=== PATIENT | female | born 1945 | race Caucasian/White ===

== ENCOUNTER 2016-10-15 14:00 | Observation (INO) ==
--- NOTE | 2016-10-15 14:18 | Emergency Department Note ---
Disposition Clinical Impression: Hypertension, Frail elderly, Hyperlipidemia, Obesity, Gait disturbance, Dizziness, Cerebrovascular disease Disposition: Admitted As Inpatient Referrals: Brittney Crenshaw CNP [Primary Care Provider] - Forms: ED Satisfaction Letter General Adult HPI - General Chief complaint: ED Dizziness Stated complaint: dizzy spells Time Seen by Provider: 10/15/16 14:15 Source: patient Limitations: no limitations - History of Present Illness HPI Narrative: 71-year-old female with history of hypertension and hyperlipidemia reports the emergency department complaining of dizziness. She was being evaluated outpatient and receiving shoulder injections for chronic shoulder pain when her physician felt concern because the patient had complained of some dizziness. Per the patient when I tried to have her walk in the office she was not able to walk straight. The physician had her sent to the ED for further evaluation. The patient describes recurrent dizziness over the last few weeks. She has had chronic bilateral shoulder pain which is unchanged. The patient has never had spinal surgery or any previous stroke or brain surgery. The patient reports occasional numbness or tingling in her upper extremities bilaterally. There is no history of unilateral arm weakness or numbness. No dysarthria. No headache or neck stiffness or rash or fever. No chest pain shortness of breath or abdominal pain no leg swelling or pain coughing up blood or syncope. Patient denies any abdominal pain or acute back pain. No rashes or urinary symptoms. There is no history of fall or injury. The patient does not have dizziness associated with movement or turning her head particularly. Pain Scale: 0 - Related Data Home Medications Medication Instructions Recorded Confirmed Amlodipine 5 g PO DAILY 01/21/16 Atorvastatin 20 mg PO HS 01/21/16 Benazepril HCl 20 mg PO DAILY 01/21/16 Gabapentin [Gralise] 600 mg PO BID 01/21/16 Hydroxyzine Pamoate 01/21/16 01/21/16 Indapamide 2.5 mg PO DAILY 01/21/16 Potassium Chloride [Klor-Con 10 mg PO DAILY 01/21/16 Sprinkle] Zolpidem 10 mg PO HS 01/21/16 Previous Rx's Medication Instructions Recorded OxyCODONE/APAP 5/325 [Percocet 1 each PO Q6HR PRN #10 tablet 02/16/16 5/325] Allergies Allergy/AdvReac Type Severity Reaction Status Date / Time acetaminophen [From Vicodin] Allergy Shakiness Verified 10/15/16 14:03 hydrocodone [From Vicodin] Allergy Shakiness Verified 10/15/16 14:03 Penicillins Allergy See Verified 10/15/16 14:04 Comments All systems ED: reviewed and negative except as stated. Past Medical History - Past Medical History Medical history: Reports: hyperlipidemia, hypertension Psychiatric history: Reports: no psych history - Social History Smoking Status: Current every day smoker Smokeless Tobacco Status: No Alcohol use: Reports: occasionally Drug use: Reports: none Physical Exam - General Limitations: no limitations General appearance: alert - Head Head exam: atraumatic, normocephalic, normal inspection - Eye Eye exam: Present: normal appearance, PERRL, EOMI. Absent: scleral icterus, conjunctival injection, miosis, mydriasis - ENT ENT exam: normal exam, normal oropharynx, mucous membranes moist, TM's normal bilaterally, normal external ear exam - Neck Neck exam: Present: normal inspection, full ROM, trachea midline. Absent: tenderness - Chest Chest inspection: Present: symmetric chest wall rise. Absent: tenderness - Respiratory Respiratory exam: Present: normal lung sounds bilaterally. Absent: respiratory distress, prolonged expiratory phase - Cardiovascular Cardiovascular exam: Present: regular rate, normal rhythm, normal heart sounds - Abdominal Exam Abdominal exam: Present: soft, Non-Tender, normal bowel sounds. Absent: tenderness, distention, guarding, rebound, rigidity - Extremities Exam Extremities exam: Present: normal inspection, full ROM, normal capillary refill. Absent: tenderness, pedal edema, joint swelling, calf tenderness - Expanded Lower Extremity Exam Lower leg exam: Absent: Homans' sign Neurovascular/Tendon exam: Present: normal capillary refill. Absent: motor deficit, sensory deficit, tendon deficit, extremity cold to touch, pallor - Back Exam Back exam: Present: normal inspection, full ROM. Absent: tenderness, CVA tenderness (R), CVA tenderness (L), vertebral tenderness - Neurological Exam Neurological exam: Present: alert, oriented X3, CN II-XII intact. Absent: motor sensory deficit - Psychiatric Psychiatric exam: Present: normal affect, normal mood - Skin Skin exam: Present: warm, dry, intact, normal color. Absent: rash, cyanosis, diaphoresis, erythema, pallor, mottled Course Vital Signs Temperature 97.3 F L 10/15/16 14:01 Pulse Rate 56 10/15/16 14:01 Respiratory Rate 16 10/15/16 14:01 Blood Pressure 150/67 10/15/16 14:01 O2 Sat by Pulse Oximetry 98 10/15/16 14:01 Temperature 97.3 F L 10/15/16 14:01 Pulse Rate 56 10/15/16 14:01 Respiratory Rate 16 10/15/16 14:01 Blood Pressure 150/67 10/15/16 14:01 O2 Sat by Pulse Oximetry 98 10/15/16 14:01 Oxygen Delivery Oxygen Delivery Room Air Medical Decision Making - MDM Narrative Medical decision making narrative: He patient is elderly, she has a history of hypertension and hyperlipidemia and describes recurrent difficulty walking. Her personal physician was very concerned when the patient could not walk well in the office. 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 The patient also describes some tingling in her fingers which is been bilateral and intermittent as well. Based on her age, vascular risk factors, new onset gait disturbance, and noted cerebrovascular disease on CT scan, I thought it would be appropriate to admit the patient the hospital for further evaluation. Perhaps a TIA workup and/or cervical disc workup would be appropriate via MRI of the brain and neck. I discussed the case with the hospitalist chemical instrumentation officer who has accepted the patient to their care. Aspirin was given. - Lab Data Lab results reviewed: Yes I reviewed the patient's lab results. Result diagrams: 10/15/16 15:40 10/15/16 15:40 Lab Results 10/15/16 10/15/16 10/15/16 Range/Units 15:35 15:40 15:40 WBC 6.9 (4.3-11.1) K/mcL RBC 4.36 (3.82-4.97) M/mcL Hgb 14.1 (11.5-15.4) g/dL Hct 39.9 (35.3-44.9) % MCV 91.5 (83.0-100.0) fL MCH 32.3 (28.0-33.3) pg MCHC 35.3 (31.6-35.5) g/dL RDW 11.8 (11.5-14.5) % Plt Count 161 (140-400) K/mcL MPV 11.3 (9.4-12.4) fL Immature Gran % 0.1 (0-4) % Seg Neutrophils % 76.9 % Lymphocytes % 16.5 % Monocytes % 5.8 % Eosinophils % 0.6 % Basophils % 0.1 % Neutrophils # 5.3 (1.6-8.9) K/mcL Lymphocytes # 1.1 (0.6-4.6) K/mcL Monocytes # 0.4 (0.0-1.3) K/mcL Eosinophils # 0.0 (0.0-0.6) K/mcL Basophils # 0.0 (0.0-0.2) K/mcL Sodium 138 (136-145) mEq/L Potassium 3.5 (3.5-4.5) mEq/L Chloride 99 (98-109) mEq/L Carbon Dioxide 29 (19-29) mEq/L BUN 18 (7-20) mg/dL Creatinine 0.86 (0.57-1.11) mg/dL Est GFR ( Amer) > 60 (> 60) Est GFR (Non-Af Amer) > 60 (> 60) BUN/Creatinine Ratio 21 (6-26) Glucose 115 H (70-99) mg/dL Calculated Osmolality 289 (280-300) Lactic Acid (0.5-2.2) mmol/L Calcium 9.9 (8.6-10.8) mg/dL Total Bilirubin (0.2-1.2) mg/dL Direct Bilirubin (0.0-0.5) mg/dL Indirect Bilirubin (0.0-1.2) mg/dL AST (5-34) Units/L ALT (0-55) Units/L Alkaline Phosphatase (38-126) Units/L Troponin I (0-0.03) ng/mL C-Reactive Protein (Less than 5) mg/L Serum Total Protein (6.0-8.3) g/dL Albumin (3.5-5.0) g/dL Globulin (2.4-3.5) g/dL Albumin/Globulin Ratio (1.1-2.2) Urine Color Yellow (Yellow) Urine Clarity Clear (Clear) Urine pH 6.5 (5.0-8.0) pH Units Ur Specific [place] 1.015 (1.010-1.025) Urine Protein Negative (Neg-Trace) mg/dL Urine Glucose (UA) Normal (Normal) mg/dL Urine Ketones Negative (Negative) mg/dL Urine Blood Negative (Negative) Urine Nitrite Negative (Negative) Urine Bilirubin Moderate H (Negative) Urine Urobilinogen Normal (Normal) mg/dL Ur Leukocyte Esterase Negative (Negative) Ur Culture Indicated? NO (NO) 10/15/16 10/15/16 10/15/16 Range/Units 15:40 15:40 15:40 WBC (4.3-11.1) K/mcL RBC (3.82-4.97) M/mcL Hgb (11.5-15.4) g/dL Hct (35.3-44.9) % MCV (83.0-100.0) fL MCH (28.0-33.3) pg MCHC (31.6-35.5) g/dL RDW (11.5-14.5) % Plt Count (140-400) K/mcL MPV (9.4-12.4) fL Immature Gran % (0-4) % Seg Neutrophils % % Lymphocytes % % Monocytes % % Eosinophils % % Basophils % % Neutrophils # (1.6-8.9) K/mcL Lymphocytes # (0.6-4.6) K/mcL Monocytes # (0.0-1.3) K/mcL Eosinophils # (0.0-0.6) K/mcL Basophils # (0.0-0.2) K/mcL Sodium (136-145) mEq/L Potassium (3.5-4.5) mEq/L Chloride (98-109) mEq/L Carbon Dioxide (19-29) mEq/L BUN (7-20) mg/dL Creatinine (0.57-1.11) mg/dL Est GFR ( Amer) (> 60) Est GFR (Non-Af Amer) (> 60) BUN/Creatinine Ratio (6-26) Glucose (70-99) mg/dL Calculated Osmolality (280-300) Lactic Acid 1.1 (0.5-2.2) mmol/L Calcium (8.6-10.8) mg/dL Total Bilirubin 0.9 (0.2-1.2) mg/dL Direct Bilirubin 0.3 (0.0-0.5) mg/dL Indirect Bilirubin 0.6 (0.0-1.2) mg/dL AST 27 (5-34) Units/L ALT 20 (0-55) Units/L Alkaline Phosphatase 76 (38-126) Units/L Troponin I 0.01 (0-0.03) ng/mL C-Reactive Protein 0 (Less than 5) mg/L Serum Total Protein 7.3 (6.0-8.3) g/dL Albumin 4.6 (3.5-5.0) g/dL Globulin 2.7 (2.4-3.5) g/dL Albumin/Globulin Ratio 1.7 (1.1-2.2) Urine Color (Yellow) Urine Clarity (Clear) Urine pH (5.0-8.0) pH Units Ur Specific [place] (1.010-1.025) Urine Protein (Neg-Trace) mg/dL Urine Glucose (UA) (Normal) mg/dL Urine Ketones (Negative) mg/dL Urine Blood (Negative) Urine Nitrite (Negative) Urine Bilirubin (Negative) Urine Urobilinogen (Normal) mg/dL Ur Leukocyte Esterase (Negative) Ur Culture Indicated? (NO) - Radiology Data Radiology results reviewed: Yes I reviewed the patient's radiology results.
[2016-10-15 15:45] LABS: Bilirubin,Urine Moderate (Negative); Blood,Urine Negative (Negative); Clarity,Urine Clear (Clear); Color,Urine Yellow (Yellow); Glucose,Urine (UA) Normal (Normal); Ketones,Urine Negative (Negative); Leukocyte Esterase,Urine Negative (Negative); Nitrite,Urine Negative (Negative); PH,Urine 6.5 pH Units (5.0-8.0); Protein,Urine Negative (Neg-Trace); Specific Gravity,Urine 1.015 (1.010-1.025); Urobilinogen,Urine Normal (Normal)
[2016-10-15 15:48] LABS: Basophils % 0.1 %; Eosinophils % 0.6 %; Hematocrit 39.9 % (35.3-44.9); Hemoglobin 14.1 g/dL (11.5-15.4); Immature Granulocytes % 0.1 % (0-4); Lymphocytes # 1.1 K/mcL (0.6-4.6); Lymphocytes % 16.5 %; Mean Corpuscular HGB Conc 35.3 g/dL (31.6-35.5); Mean Corpuscular Hemoglobin 32.3 pg (28.0-33.3); Mean Corpuscular Volume 91.5 fL (83.0-100.0); Mean Platelet Volume 11.3 fL (9.4-12.4); Monocytes # 0.4 K/mcL (0.0-1.3); Monocytes % 5.8 %; Neutrophils # 5.3 K/mcL (1.6-8.9); Platelet Count 161 K/mcL (140-400); Red Blood Count 4.36 M/mcL (3.82-4.97); Red Cell Distribution Width 11.8 % (11.5-14.5); Segmented Neutrophils % 76.9 %
[2016-10-15 16:02] LABS: BUN/Creatinine Ratio 21 (6-26); Blood Urea Nitrogen 18 mg/dL (7-20); Calcium 9.9 mg/dL (8.6-10.8); Carbon Dioxide 29 mEq/L (19-29); Chloride 99 mEq/L (98-109); Glucose 115 mg/dL (70-99); Osmolality,Calculated 289 (280-300); Potassium 3.5 mEq/L (3.5-4.5); Sodium 138 mEq/L (136-145); eGFR For African Americans > 60 (> 60); eGFR For Non-African Americans > 60 (> 60)
[2016-10-15 16:03] LABS: Albumin 4.6 g/dL (3.5-5.0); Albumin/Globulin Ratio 1.7 (1.1-2.2); Bilirubin,Direct 0.3 mg/dL (0.0-0.5); Bilirubin,Indirect 0.6 mg/dL (0.0-1.2); Bilirubin,Total 0.9 mg/dL (0.2-1.2); Globulin 2.7 g/dL (2.4-3.5); Total Protein 7.3 g/dL (6.0-8.3)
[2016-10-15] MEDS ORDERED: *HR* Acetaminophen w/Cod 300-30 mg 1 TAB TABLET PO ONE (16:50)
[2016-10-15] MEDS ORDERED: Aspirin 325 MG TABLET PO ONE (16:50)
[2016-10-15] MEDS ORDERED: Naloxone 0.4 MG/ML INJ IVP PRN (20:46)
--- NOTE | 2016-10-15 21:07 | Internal Med History&Physical ---
<Natalie Isidro - Last Filed: 10/15/16 20:56> Date of Encounter: 10/15/16 Time of Encounter: 20:00 Assessment and Plan (1) Dizziness Current visit: Yes Status: Acute - Dizziness associated with positional change. - Likely secondary to orthostatic hypotension. Also concern of vertebrobasilar insufficiency given associated loss of balance & posterior neck pain with PMH of HTN and hyperlipidemia. - CT head found no intracranial abnormality. - Will check orthostatic vital signs and hold her home BP medications for now. - Will obtain MRI brain and MRA head & neck for further evaluation. - Continue telemetry monitoring. (2) Gait disturbance Current visit: Yes Status: Acute - With some unsteadiness on physical exam. - Concern of vertebrobasilar insufficiency. - Fall precaution. - PT/OT to evaluate and treat. (3) Hypertension Current visit: Yes Status: Chronic - Patient's dizziness can be partially contributed by orthostatic hypotension. - Will check orthostatic vital signs. - Will hold home blood pressure medications for now. - Continue to monitor BP. Qualifiers: Hypertension type: essential hypertension Qualified Code(s): I10 - Essential (primary) hypertension (4) Hyperlipidemia Current visit: Yes Status: Chronic - Continue Lipitor. Qualifiers: Hyperlipidemia type: unspecified Qualified Code(s): E78.5 - Hyperlipidemia , unspecified (5) DVT prophylaxis Current visit: Yes Status: Acute - SQ heparin Internal Medicine - H&P: HPI Chief complaint: Dizziness Admitted From: Home Plans for Post Hospital Care: Home History of present illness: Ms. Powell is a 71 year old female with PMH of HTN, hyperlipidemia, knee osteoarthritis s/p bilateral TKR and chronic bilateral shoulder pain. Patient had bilateral shoulder joint injection at [facility] today but was noted to have ataxia along with complaint of dizziness. Patient was sent from the clinic to [facility] ED for further evaluation. Patient reports having occasional dizziness for past 1-2 weeks. It usually associated with positional change such as standing up from lying or sitting position. Patient describes the dizziness as loss of balance and denies room spinning, lightheadedness or syncope. It's associated with new onset of right hand & forearm numbness and posterior neck pain. Patient denies focal weakness, vision or hearing change. Patient denies chest pain/discomfort, palpitation, dyspnea, fever, nausea, vomiting, diarrhea. Patient reports no known personal history of heart but has known heart murmurs for long time. Patient denies known history of stroke/TIA in the past and no known recent trauma/injury. Past Med Surg Social Fam HX - Past Medical History Medical history: hyperlipidemia, hypertension, other (Osteoarthritis of bilateral knees and shoulders) Psychiatric history: anxiety, depression - Past Surgical History Surgical History: knee replacement - Social History Smoking Status: Current some day smoker Smokeless Tobacco Status: No Alcohol use: occasionally Drug use: none - Family History Father Living Status: Age at : 86 Hx Family Cardiac Disorders: Yes (Heart attack) Mother Living Status: Age at : 92 Internal Medicine - H&P: Meds Amlodipine [Norvasc] 5 mg PO DAILY 01/21/16 [History] Atorvastatin Calcium [Lipitor] 20 mg PO HS 01/21/16 [History] Benazepril HCl [Lotensin] 20 mg PO QAM 01/21/16 [History] Indapamide [Lozol] 2.5 mg PO DAILY 01/21/16 [History] Potassium Chloride [Klor-Con Sprinkle] 10 meq PO DAILY 01/21/16 [History] Zolpidem [Ambien] 10 mg PO HS 01/21/16 [History] Acetaminophen w/Cod 300-30 mg [Tylenol w/Codeine #3] 1 each PO Q6H PRN 10/15/16 [History] Docusate [Colace] 100 mg PO DAILY PRN 10/15/16 [History] Etodolac [Lodine] 400 mg PO QAM 10/15/16 [History] Gabapentin [Neurontin] 600 mg PO HS 10/15/16 [History] Polyethylene Glycol 3350 [Smoothlax] 17 gm PO DAILY PRN 10/15/16 [History] Sertraline [Zoloft] 100 mg PO DAILY 10/15/16 [History] Allergies acetaminophen [From Vicodin] Allergy (Verified 10/15/16 14:03) Shakiness hydrocodone [From Vicodin] Allergy (Verified 10/15/16 14:03) Shakiness Penicillins Allergy (Verified 10/15/16 14:04) See Comments patient unsure of reaction All Systems PM: A 10-system review of systems was performed and is negative for pertinent findings except as documented above in the HPI. - Constitutional Constitutional: weight loss (Intentional weight loss for 5 lb), no anorexia, no fever(s), no falls - EENT Eyes: no change in vision Ears: no decreased hearing Nose, mouth and throat: neck pain (Posterior), no dysphagia, no odynophagia - Cardiovascular Cardiovascular ROS IM: no chest pain, no lightheadedness, no palpitations, no syncope - Respiratory Respiratory: no cough, no dyspnea, no excessive phlegm production - Gastrointestinal Gastrointestinal: no abdominal pain, no diarrhea, no hematochezia, no melena, no nausea, no vomiting - Genitourinary Genitourinary: no difficulty urinating, no dysuria, no hematuria - Musculoskeletal Musculoskeletal ROS IM: arthralgias (Chronic shoulder pain), no myalgias - Integumentary Integumentary IM: no erythema, no pruritus, no rash - Neurological Neurological ROS: as per HPI - Hematologic/Lymphatic Hematologic/Lymphatic: no easy bleeding, no easy bruising - Constitutional Vitals: Temp Pulse Resp BP Pulse Ox 97.3 F L 56 16 169/81 98 10/15/16 14:01 10/15/16 14:01 10/15/16 18:04 10/15/16 18:04 10/15/16 14:01 General appearance: Present: cooperative, A&O X 3, no acute distress, answers questions appropriately - Head Head exam: Present: atraumatic, normocephalic - Eye Eye exam: Present: PERRL, conjuntiva pink, sclera anicteric Pupils: Present: PERRL - Neck Neck exam general surgery: Present: supple, trachea midline. Absent: lymphadenopathy - Respiratory Respiratory exam: Present: CTAB. Absent: accessory muscle use, rales, rhonchi, wheezes - Cardiovascular Cardiovascular exam: Present: RRR, +S1, +S2, systolic murmur. Absent: diastolic murmur, gallop, rubs - GI/Abdominal GI/Abdominal exam: Present: normal bowel sounds, soft, no peritoneal signs. Absent: distended, tenderness - Extremities Exam Extremities exam: Present: warm, radial pulses palpable and symetrical. Absent : calf tenderness, cyanotic, pedal edema - Neurological Exam Neurological exam: Present: abnormal gait (Some unsteadiness), CN II-XII intact , oriented X3, no focal deficits. Absent: pronater drift, facial droop, speech deficit - Skin Skin exam: Present: dry, intact Internal Med - H&P Results - Labs CBC & Chem 7: 10/15/16 15:40 10/15/16 15:40 <Catracho Posada - Last Filed: 10/16/16 06:01> Date of Encounter: 10/15/16 Internal Medicine - H&P: HPI History of present illness: Ms. Powell is a 71 year old female All Systems PM: A 10-system review of systems was performed and is negative for pertinent findings except as documented above in the HPI. - Constitutional Vitals: Temp Pulse Resp BP Pulse Ox 98.4 F 66 16 158/67 95 10/16/16 04:34 10/16/16 04:34 10/16/16 04:34 10/16/16 04:34 10/16/16 04:34 Internal Med - H&P Results - Labs CBC & Chem 7: 10/15/16 15:40 10/15/16 15:40 - Impressions ITS Impressions Brain MRI 10/15/16 20:48 IMPRESSION: Chronic small vessel ischemic changes. No acute brain parenchymal abnormality. D/ / Lulú Bhatia MD / Lulú Bhatia MD Interpreting Provider: Lulú Bhatia MD Head MRA 10/15/16 20:48 IMPRESSION: No significant abnormality of the intracranial circulation. D/ / Lulú Bhatia MD / Lulú Bhatia MD Interpreting Provider: Lulú Bhatia MD Neck MRA 10/15/16 20:48 IMPRESSION: Approximately 50% stenosis of the right internal carotid artery in the region of the bulb using NASCET criteria. Mild stenosis of the origin of the left subclavian from the aortic arch. No other abnormality of the neck vessels. D/ / Lulú Bhatia MD / Lulú Bhatia MD Interpreting Provider: Lulú Bhatia MD - Attending Attestation I personally examined and interviewed this patient and my medical decision- making was reviewed with the Resident Physician-Dr Isidro. I agree with the documented findings, disposition and treatment plan as described except to the extent set forth below. Patient reports that she had sinusitis symptoms in the prior month before the onset of her symptoms, she additionally reports that her symptoms are worse with position so other differentials to consider are BPPV and vestibular neuronitis should MRA and MRI be negative.
[2016-10-15] MEDS ORDERED: Gabapentin 300 MG CAPSULE PO SCH (23:00)
[2016-10-16] MEDS: *HR* Heparin 5,000 UNIT/ML VIAL SQ SCH ×2 (06:01→17:50)
[2016-10-16 06:14] LABS: Hematocrit 38.4 % (35.3-44.9); Hemoglobin 13.6 g/dL (11.5-15.4); Immature Granulocytes % 0.2 % (0-4); Lymphocytes # 0.6 K/mcL (0.6-4.6); Mean Corpuscular HGB Conc 35.4 g/dL (31.6-35.5); Mean Corpuscular Hemoglobin 32.2 pg (28.0-33.3); Mean Platelet Volume 11.5 fL (9.4-12.4); Monocytes # 0.4 K/mcL (0.0-1.3); Monocytes % 4.5 %; Neutrophils # 7.3 K/mcL (1.6-8.9); Platelet Count 160 K/mcL (140-400); Red Blood Count 4.22 M/mcL (3.82-4.97); Red Cell Distribution Width 11.6 % (11.5-14.5); Segmented Neutrophils % 88.3 %
[2016-10-16 06:43] LABS: BUN/Creatinine Ratio 21 (6-26); Blood Urea Nitrogen 18 mg/dL (7-20); Calcium 9.9 mg/dL (8.6-10.8); Carbon Dioxide 26 mEq/L (19-29); Chloride 101 mEq/L (98-109); Glucose 163 mg/dL (70-99); Osmolality,Calculated 293 (280-300); Potassium 3.9 mEq/L (3.5-4.5); Sodium 139 mEq/L (136-145); eGFR For African Americans > 60 (> 60); eGFR For Non-African Americans > 60 (> 60)
[2016-10-16] MEDS ORDERED: *HR* Acetaminophen w/Cod 300-30 mg 1 TAB TABLET PO PRN (14:20)
[2016-10-16] MEDS ORDERED: amLODIPine 5 MG TABLET PO SCH (15:00)
[2016-10-16 15:32] VITALS: BP 159/73
--- NOTE | 2016-10-16 16:48 | Discharge Summary ---
Date of Encounter: 10/16/16 Time of Encounter: 15:00 - Discharge Diagnosis (1) Dizziness Priority: Primary Status: Acute (2) Gait disturbance Priority: Secondary Status: Chronic (3) Hyperlipidemia Priority: Secondary Status: Chronic Qualifiers: Hyperlipidemia type: unspecified Qualified Code(s): E78.5 - Hyperlipidemia , unspecified (4) Hypertension Priority: Secondary Status: Chronic Qualifiers: Hypertension type: essential hypertension Qualified Code(s): I10 - Essential (primary) hypertension (5) Cervical stenosis of spine Priority: Secondary Status: Chronic (6) Carotid artery stenosis Priority: Secondary Status: Chronic Qualifiers: Laterality: right Qualified Code(s): I65.21 - Occlusion and stenosis of right carotid artery (7) Cerebrovascular disease Priority: Primary Status: Chronic (8) Obesity Priority: Secondary Status: Chronic Qualifiers: Obesity type: due to excess calories Obesity severity: non-morbid Qualified Code(s): E66.09 - Other obesity due to excess calories - Discharge Medications Home Medications: Amlodipine [Norvasc] 5 mg PO DAILY 01/21/16 [History] Atorvastatin Calcium [Lipitor] 20 mg PO HS 01/21/16 [History] Zolpidem [Ambien] 10 mg PO HS 01/21/16 [History] Acetaminophen w/Cod 300-30 mg [Tylenol w/Codeine #3] 1 each PO Q6H PRN 10/15/16 [History] Docusate [Colace] 100 mg PO DAILY PRN 10/15/16 [History] Etodolac [Lodine] 400 mg PO QAM 10/15/16 [History] Gabapentin [Neurontin] 600 mg PO HS 10/15/16 [History] Polyethylene Glycol 3350 [Smoothlax] 17 gm PO DAILY PRN 10/15/16 [History] Sertraline [Zoloft] 100 mg PO DAILY 10/15/16 [History] Allergies/Adverse Reactions: Allergies acetaminophen [From Vicodin] Allergy (Verified 10/15/16 14:03) Shakiness hydrocodone [From Vicodin] Allergy (Verified 10/15/16 14:03) Shakiness Penicillins Allergy (Verified 10/15/16 14:04) See Comments patient unsure of reaction Procedures/tests Complete & Pending: Procedures Performed prior 72 hours Category Date Time Status MR angio head wo con [MR] Stat MRI 10/15/16 20:48 Draft MR angio neck wo/w con [MR] Stat MRI 10/15/16 20:48 Draft MR head/brain wo con [MR] Stat MRI 10/15/16 20:48 Draft Date of admission: 10/15/16 17:06 Primary care physician: Brittney Crenshaw CNP Consults: 10/15/16 21:31 Consult to Occupational Therapy [CONS] Routine Comment: Evaluate, develop and implement POC Consult to Physical Therapy [CONS] Routine Comment: Evaluate, develop and implement POC - Patient Status Disposition: Home, Self-Care Condition: Good Functional capacity at discharge: independent ambulation Overall status at discharge: patient is progressing back to baseline - Discharge Instructions Follow Up With: Brittney Crenshaw CNP [Primary Care Provider] - Additional Instructions: YOUR DIZZINESS WAS LIKELY SECONDARY TO LOW BLOOD PRESSURE, STOPPED TAKING YOUR HOME DOSE OF LOTENSIN. CHECK YOUR BLOOD PRESSURE TWICE DAILY (SAME TIME EVERY DAY IN THE MORNING AND THE EVENING). CALL YOUR DOCTOR IF BP>150/90. KEEP YOURSELF HYDRATED. YOU HAD AN MRI OF YOUR BRAIN THAT SHOWED CHRONIC CHANGES FROM ELEVATED BLOOD PRESSURE IN THE PAST. YOU ALSO HAD AN MRA OF THE HEAD THAT WAS UNREMARKABLE. YOU HAD AN MRA OF YOUR NECK THAT SHOWED CHOLESTEROL BUILDING UP INSIDE YOUR ARTERY ON THE RIGHT SIDE. PLEASE FOLLOW A STRICT LOW FAT AND LOW SALT DIET. FOLLOW UP WITH YOUR DOCTOR IN 1 WEEK AND BRING NUMBERS OF BLOOD PRESSURE. - Diet and Activity Activity: resume usual activities as tolerated Diet: low fat, low cholesterol, low salt diet Interval History: Patient's only complaint is an episode of right arm numbness and tingling as that it is chronic due to cervical stenosis. No nausea. No vomiting. No chest pain. No shortness of breath. She is eager to go home Hospital course: Ms. Powell is a 71 year old female with past medical history of hypertension, posterior ascites, tobacco use, and cervical stenoses who presented with a chief complaint of dizziness. MRI of the brain showed chronic vessel ischemic changes, no acute intracranial process. MRA of the head was unremarkable. Neck MRA showed 50% stenosis of right internal carotid artery. Her dizziness was likely secondary to orthostatic hypotension due to blood pressure medications. Her blood pressure medications when tested on that she was instructed to check her blood pressure at home. Physical therapy recommended outpatient therapy. Plan: Patient with explaining to tell her diagnosis, imaging results, and treatment options. She was recommended to follow a strict low salt, low fat diet and to take all her medications. She will check her blood pressure at home. She verbalized understanding and agreement with the plan. All questions answered. She will follow-up with her primary care physician in one week. - Time Spent with Patient Total time spent providing and/or coordinating discharge services: - Constitutional Vitals: Temp Pulse Resp BP Pulse Ox 98.2 F 68 14 159/73 95 10/16/16 15:30 10/16/16 15:30 10/16/16 15:30 10/16/16 15:30 10/16/16 15:30 General appearance: Present: cooperative, A&O X 3, no acute distress, answers questions appropriately - Eye Eye exam: Present: PERRL, sclera anicteric - Neck Neck exam general surgery: Present: supple, trachea midline. Absent: lymphadenopathy - Respiratory Respiratory exam: Present: CTAB - Cardiovascular Cardiovascular exam: Present: RRR - GI/Abdominal GI/Abdominal exam: Present: normal bowel sounds, soft. Absent: distended, tenderness - Extremities Exam Extremities exam: Absent: pedal edema - Neurological Exam Neurological exam: Present: alert, oriented X3, no focal deficits, strengths equal and symetr throughout. Absent: facial droop, speech deficit - Skin Skin exam: Absent: rash
--- NOTE | 2016-10-16 20:00 | Electrocardiograph Report ---
[address] [address] Test Date: 2016-10-15 Pat Name: Romana Powell Department: 102 Room: 3A43 Gender: F Regroover: : 1945 Requested By: Jalil Ramos Order Number: [id number] Reading MD: Gretchen Spann Measurements Intervals [place] Rate: 58 P: 47 MI: 159 QRS: 14 QRSD: 97 T: 30 QT: 440 QTc: 436 Interpretive Statements SINUS BRADYCARDIA Electronically Signed On 10-16-2016 19:59:09 EDT by Gretchen Spann
== END 2016-10-16 17:55 | disposition home or self-care (01) ==
LOC: EMEROO 14:00 → 3ANU 14:00
PROVIDERS: ADMIT Internal Medicine; ATTEND Internal Medicine

== ENCOUNTER 2017-10-01 06:09 | Inpatient (IN) ==
[~2017-10-01 06:09] MED LIST: *HR* Enoxaparin 30 MG/0.3 ML SYRINGE SQ SCH
[2017-10-01] MEDS ORDERED: Clindamycin 900 MG/50 ML 900 MG/50 ML IV.SOLN IVPB ONE (06:30)
[2017-10-01] MEDS ORDERED: Albuterol 2.5 MG/3 ML NEBULIZER IH ONE (06:47)
[2017-10-01] MEDS: Plasma-Lyte A (PH 7.4) 1,000 ML IVC SCH ×2 (07:11→09:17)
[2017-10-01] MEDS ORDERED: Ondansetron 4 MG/2 ML VIAL ONE (07:17)
[2017-10-01] MEDS ORDERED: *HR* Midazolam HCl 2 MG/2 ML VIAL ONE (07:17)
[2017-10-01] MEDS ORDERED: *HR* FentaNYL (PF) 100 MCG/2 ML VIAL ONE (07:17)
[2017-10-01] MEDS ORDERED: Dexamethasone 4 MG/ML VIAL ONE (07:17)
[2017-10-01] MEDS ORDERED: Lidocaine -MPF 4% 5 ML AMPUL ONE (07:17)
[2017-10-01] MEDS ORDERED: Lidocaine -MPF 2% 2 ML VIAL ONE ×2 (07:17→07:20)
[2017-10-01] MEDS ORDERED: *HR* Propofol 200 MG/20 ML VIAL IVP ONE (07:18)
[2017-10-01] MEDS ORDERED: *HR* Succinylcholine 200 MG/10 ML VIAL IVP ONE (07:21)
[2017-10-01] MEDS ORDERED: ROPIVACAINE HCL/PF 0.5% 30 ML VIAL ONE (07:29)
[2017-10-01] MEDS ORDERED: Lidocaine/EPI 1:100k 2% 20 ML VIAL ONE (07:31)
[2017-10-01] MEDS ORDERED: Bupivacaine/Clonidine Syringe 1 EACH SYRINGE ONE (07:32)
--- NOTE | 2017-10-01 07:40 | History & Physical Report ---
Date of Encounter: 10/01/17 Time of Encounter: 07:40 24 Hour HP Update - Instructions Instructions: If the History and Physical is less than 30 days old and was completed prior to A.M. admission and or procedure and has NOT been updated on calendar day of procedure please complete this update prior to performing procedure. - Update Patient reports changes in Medical Condition: No Changes in examination, assessment, or condition: No Changes in Medication: No Preop tests/diagnostics Reviewed: Yes Surgery Remains Indicated: Yes Consent for Planned Operative Procedure(s) Verified: Yes - Pre-Operative Checklist Preoperative Checklist Indicated: No Prophylactic Antibiotic Ordered: Yes Is VTE Prophylaxis Indicated?: Yes
--- NOTE | 2017-10-01 07:42 | Discharge Summary ---
<Renee Horne - Last Filed: 10/01/17 08:16> Orders not resulted at time of discharge: Pending orders 10/01/17 00:01 XR shoulder complete LT [XR] Routine XR shoulder complete LT [XR] Routine H/H [Hemoglobin and Hematocrit] [HEME] Routine 10/01/17 07:55 US anesthesia pain block [US] Stat Date of Encounter: 10/01/17 - Discharge Diagnosis (1) Arthritis of left glenohumeral joint Priority: Primary Status: Acute (2) Status post total replacement of left shoulder Priority: Primary Status: Acute - Hospital Course Hospital course: Ms. Powell is a 72 year old female - Time Spent with Patient Total time spent providing and/or coordinating discharge services: - Discharge Medications Home Medications: Atorvastatin Calcium [Lipitor] 20 mg PO HS 01/21/16 [History] Zolpidem [Ambien] 10 mg PO HS 01/21/16 [History] amLODIPine [Norvasc] 5 mg PO DAILY 01/21/16 [History] Gabapentin [Neurontin] 600 mg PO HS 10/15/16 [History] Sertraline [Zoloft] 100 mg PO DAILY 10/15/16 [History] Benazepril HCl [Lotensin] 20 mg PO DAILY 10/01/17 [History] Indapamide [Lozol] 2.5 mg PO DAILY 10/01/17 [History] OxyCODONE Immed Rel [Roxicodone 5 MG] 5 mg PO Q6HR PRN 7 Days #28 tablet [Rx] Potassium Chloride [Klor-Con 10] 10 meq PO DAILY 10/01/17 [History] hydrOXYzine pamoate [HydrOXYzine Pamoate] 25 mg PO DAILY 10/01/17 [History] Allergies/Adverse Reactions: 3 Allergy/AdvReac Type Severity Reaction Status Date / Time hydrocodone [From Vicodin] Allergy angry, ams Verified 10/01/17 06:41 Penicillins Allergy unknown-childhood Verified 10/01/17 06:41 allergy Primary care physician: Brittney Crenshaw CNP - Patient Status Disposition: Transfer Inpatient Rehab Fac Condition: Good - Discharge Instructions Follow Up With: Brittney Crenshaw CNP [Primary Care Provider] - <Jermain Ruth - Last Filed: 10/03/17 06:43> Orders not resulted at time of discharge: Pending orders 10/01/17 00:01 XR shoulder complete LT [XR] Routine H/H [Hemoglobin and Hematocrit] [HEME] Routine Date of Encounter: 10/03/17 Time of Encounter: 06:42 - Discharge Diagnosis (1) Left rotator cuff tear arthropathy Priority: Primary Status: Chronic (2) Obesity (BMI 30.0-34.9) Priority: Secondary Status: Chronic (3) Hypertension Priority: Secondary Status: Chronic Qualifiers: Hypertension type: unspecified Qualified Code(s): I10 - Essential (primary ) hypertension (4) Hyperlipidemia Priority: Secondary Status: Chronic Qualifiers: Hyperlipidemia type: unspecified Qualified Code(s): E78.5 - Hyperlipidemia , unspecified (5) Cerebrovascular disease Priority: Secondary Status: Chronic (6) Cervical stenosis of spine Priority: Secondary Status: Chronic (7) Carotid artery stenosis Priority: Secondary Status: Chronic Qualifiers: Laterality: unspecified laterality Qualified Code(s): I65.29 - Occlusion and stenosis of unspecified carotid artery (8) Acute blood loss anemia Priority: Primary Status: Acute (9) Status post total replacement of left shoulder Priority: Primary Status: Acute - Hospital Course Hospital course: Ms. Powell is a 72 year old female Status post left total shoulder replacement The patient had an uneventful postoperative course. They received antibiotics and physical therapy and were discharged in stable condition. There will follow -up in the office in 2 weeks. Discharge Friday - Time Spent with Patient Total time spent providing and/or coordinating discharge services: Primary care physician: Brittney Crenshaw CNP - Patient Status Functional capacity at discharge: independent ambulation Overall status at discharge: patient is progressing back to baseline
--- NOTE | 2017-10-01 07:56 | Anesthesia Evaluation PreOp ---
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 History: Other (numbness involving L second finger) Other Medical History: Denies Any Significant HX Anesthesia History: No Prior Anesthetic Complications Alcohol Use: none Drug use: none Medications and Allergies Atorvastatin Calcium [Lipitor] 20 mg PO HS 01/21/16 [History] Zolpidem [Ambien] 10 mg PO HS 01/21/16 [History] amLODIPine [Norvasc] 5 mg PO DAILY 01/21/16 [History] Gabapentin [Neurontin] 600 mg PO HS 10/15/16 [History] Sertraline [Zoloft] 100 mg PO DAILY 10/15/16 [History] Benazepril HCl [Lotensin] 20 mg PO DAILY 10/01/17 [History] Indapamide [Lozol] 2.5 mg PO DAILY 10/01/17 [History] Potassium Chloride [Klor-Con 10] 10 meq PO DAILY 10/01/17 [History] hydrOXYzine pamoate [HydrOXYzine Pamoate] 25 mg PO DAILY 10/01/17 [History] 3 Allergy/AdvReac Type Severity Reaction Status Date / Time hydrocodone [From Vicodin] Allergy angry, ams Verified 10/01/17 06:41 Penicillins Allergy unknown-childhood Verified 10/01/17 06:41 allergy - Meds/Allergy Pre-op Review Medications Reviewed: Yes Allergies Reviewed: Yes Beta Blockers on Current Med List: No Anesthesia Results - Labs Laboratory Tests 09/18/17 09/18/17 13:08 13:08 WBC 5.3 Hgb 13.4 Hct 38.9 Plt Count 159 Sodium 140 Potassium 3.8 Chloride 102 Carbon Dioxide 28 BUN 19 Creatinine 0.89 Est GFR ( Amer) > 60 Est GFR (Non-Af Amer) > 60 BUN/Creatinine Ratio 21 Glucose 93 Calculated Osmolality 292 Calcium 9.8 - Imaging EKG: report reviewed, image reviewed (SB) Anesthesia Exam Last Vital Signs Temp 99.2 F 10/01/17 06:43 Pulse 67 10/01/17 06:43 Resp 18 10/01/17 06:43 BP 135/67 10/01/17 06:43 Pulse Ox 96 10/01/17 06:43 - HEENT Pupil (Motor): Pupils equal, EOMI Mallampati: III Teeth: Normal Oral Opening: Greater than 3 - WIRE MILL ROVER WIRE MILL ROVER Sensory: Deficit: LUE (numbness involving second digit of L hand) - Cardiac Rhythm: Regular Murmur: None - Pulmonary Breath Sounds: bilateral Clear Respiratory Effort: Symmetrical Anesthesia Assess/Plan ASA Score: 2 Modified Jesika Scale for Level of Consciousness: Cooperative, oriented, and tranquil Anesthetic Plan: General, Regional (Patient aware of risks of nerve block, with her pre-existing Left second finger numbness; she has no clinically detectable weakness and has never officially been diagnosed with nerve damage; she is agreeable to a LUE brachial plexus block even with her likely pre-existing nerve damage resulting in persist numbness to the finger and understands those risks) Monitoring Plan: Standard Monitors Recovery Plan: PACU
[2017-10-01] MEDS ORDERED: *HR* PHENYLEPHRINE 1,000 MCG/10 ML SYRINGE IVP ONE (08:27)
[2017-10-01] MEDS ORDERED: *HR* Promethazine 25 MG/ML VIAL IVP PRN (08:36)
[2017-10-01] MEDS ORDERED: *HR* HYDROmorphone (PF) 1 MG/ML SYRINGE IVP PRN (08:36)
--- NOTE | 2017-10-01 08:40 | Anesthesia Procedures ---
Date of Encounter: 10/01/17 Time of Encounter: 08:00 Procedures: Anesthesia - Nerve Block Procedure Date: 10/01/17 Time: 08:00 Allergies/Adv Reactions: hydrocodone,pcn Pre-op Diagnosis: left shoulder arthritis Surgical Procedure: left shoulder replacement Checklist: Correct Patient Identifier, Correct procedure, History checked Correct side: Left Blood Thinner: No Monitor Applied: EKG, BP, Pulse Oximetry Supplemental Oxygen via Nasal Cannula (L/min): 2 Sedation: Versed (mg): 2 Sedation: Fentanyl (mcg): 100 Indication: Post Op Analgesia Pre-op Neuro Deficits: No Block Type: Supraclavicular (icb/scp) Catheter placed: No Sterile Technique: Yes Ultrasound used: Yes Anatomy identified: Yes Visual spread of Local: Yes Neuro Stimulation: Yes Nerve Stimulator Range: 0.2 - 0.4 mA Blood on Needle Aspiration: No Smooth Injection of Local: Yes Pain with Injection of Local: No Prep: Chlorhexadine Needle: 22 x 50 mm Stimuplex Local: 0.25% Bupivicaine w/Clonidine 20 mcg/cc (icb/scp), Ropivacaine (rop 0.5% 8mg decadron ) Volume (cc): 35 Number of Attempts: 1 Complications: None/effective block Vitals: Vital Signs - Last 8 Hours Temp Pulse Resp BP Pulse Ox 10/01/17 08:01 18 167/74 98 10/01/17 06:43 99.2 F 67 18 135/67 96 10/01/17 06:29 99.2 F 67 18 135/67 96 Intake and Output 09/30/17 10/01/17 10/01/17 23:59 07:59 15:59 Intake Total 50 / 50 Balance 50 / 50 Intake: IV Fluids 50 / 50 Cleocin Premix 900 MG/50 ML 900 50 / 50 mg In 50 ml @ 100 mls/hr IVPB PREOP ONE Rx#:[id number] Other: Weight 77.111 kg Patient Weight 10/01/17 23:59 Weight 77.111 kg Comments: per dr. guzman request
--- NOTE | 2017-10-01 09:17 | Orthopedic Operative Note ---
Date of procedure: 10/01/17 Pre-op diagnosis: Left shoulder arthritis Post-op diagnosis: same Procedure: Procedure: Total Shoulder Replacement left Estimated blood loss: 50 cc Hardware:Arthrex eclipse glenoid: Medium keel eclipse humeral head 47 x 20 35 hollow screw 47 trunnion, 4, 4.75 swivel lock suture anchors. Exam Under anesthesia: Restricted motion all planes Procedural Notes: Grade 4 arthritic changes humeral head glenoid socket, significant osteophyte formation humeral neck, no complications occurred Operative procedure: The patient was brought to the operating room and placed on the operating room table. After general anesthesia was administered the operative shoulder was examined. Findings were noted. The patient was placed in the modified beachchair position. All pressure points were padded appropriately. And the head was stabilized in the neutral position. The operative extremity was prepped and draped in the sterile surgical fashion. The patient received IV antibiotics prior to skin incision. A standard deltopectoral approach was made to the operative shoulder. Incision was made to the skin and subcutaneous tissue,hemo stasis was obtained with Bovie cautery. Using careful blunt dissection the cephalic vein was identified and mobilized medially. The deltopectoral interval was developed and the clavipectoral fascia was incised. The subscap was released off the lesser tuberosity and tagged with #2 FiberWire suture. The humerus was dislocated osteophytes were present were removed and the humeral cut was made along the anatomic neck. Patient noted to have grade 4 arthritic changes humeral head. Anterior and posterior Bankart retractors were placed to expose the glenoid. Glenoid was noted to have grade 4 arthritic changes. The glenoid guide was seated and the centering hole was made. It was reamed with the appropriate reamer. The finishing guide was seated superior and inferior drill holes were placed. Patient punch was seated trial was seated had good fit and fixation. The glenoid component was cemented in place held with digital pressure until cemented hardened. Good fit and fixation. The humerus was redislocated and prepared the humerus was sized to a 47, the guide was seated centering pin was placed measured at 3. Trial trunnion was seated 43 x 16 trial was seated humerus was reduced patient good motion and stability. Humerus was redislocated real trunnion was seated inthe center of the cut. It was fixed initially with the 30 Hollow screw, this gave poor fixation most likely related to bone quality and not related to the implant. Patient got good fixation with a 35 mm Hollow screw. 47 x 20 humeral head was impacted in place had good fit and fixation. Shoulders reduced had good stability. Subscap was repaired with 4 #2 fiber tapes in a Kelby-Jorge Luis fashion and secured to the lesser tuberosity with 4, 4.75 swivel lock suture anchors. The deep tissue was irrigated with pulse irrigation, the PA close the shoulder. Prior to this the rotator interval was closed with 1 [id number] Vicryl suture. The deltopectoral interval was closed with a running #1 PDS suture, subcutaneous tissue was irrigated and closed with 0 PDS suture, the skin was closed with Dermabond. Complications: No implant complications. No surgical complications. Anesthesia: GETA Surgeon: Jermain Ruth Was there an captain assistant present: Yes Yard Switcher: Yuly Wooten Estimated blood loss (cc): 50 Condition: stable Disposition: PACU
--- NOTE | 2017-10-01 10:01 | Anesthesia Evaluation Post Op ---
Date of Encounter: 10/01/17 Time of Encounter: 10:00 - Vital Signs Vital Signs: Vital Signs/O2 Sat/Glucose, Most Current Temp Pulse Resp BP Pulse Ox 10/01/17 09:51 65 14 135/69 96 10/01/17 09:41 63 14 140/68 94 10/01/17 09:31 97.9 F 71 15 146/74 100 10/01/17 08:01 18 167/74 98 10/01/17 06:43 99.2 F 67 18 135/67 96 10/01/17 06:29 99.2 F 67 18 135/67 96 - Lungs Lungs: Clear Ascult./Percussion - Airway Airway: Non-obstructed - Cardiovascular Regular Rate - Mental Status Mental Status: Alert & Oriented, Answers Appropriately - Pain Pain Scale: 0 - Nausea Vomiting Nausea Vomiting: Not Present - Hydration Hydration: Ice chips - Discharge PostOp Status: Transfer Patient to floor
[2017-10-01] MEDS ORDERED: Ringers Solution, Lactated 1,000 ML IVC SCH (10:04)
[2017-10-01] MEDS ORDERED: MOM Conc 10 ML UD.LIQ PO PRN (10:04)
[2017-10-01] MEDS ORDERED: Temazepam 15 MG CAPSULE PO PRN (10:04)
[2017-10-01] MEDS ORDERED: Clindamycin 900 MG/50 ML 900 MG/50 ML IV.SOLN IVPB SCH (10:04)
[2017-10-01] MEDS ORDERED: Sennosides 8.6 MG TABLET PO PRN (10:04)
[2017-10-01] MEDS ORDERED: Naloxone 0.4 MG/ML INJ IVP PRN (10:04)
[2017-10-01] MEDS ORDERED: Ondansetron 4 MG/2 ML VIAL IVP PRN (10:04)
[2017-10-01 10:28] LABS: Hematocrit 35.7 % (35.3-44.9); Hemoglobin 12.2 g/dL (11.5-15.4)
[2017-10-01] MEDS: hydrOXYzine pamoate 25 MG CAPSULE PO SCH (10:54)
[2017-10-01] MEDS: Lisinopril 20 MG TABLET PO SCH (10:54)
[2017-10-01] MEDS: amLODIPine 5 MG TABLET PO SCH (10:55)
[2017-10-01] MEDS: Clindamycin 900 MG/50 ML 900 MG/50 ML IV.SOLN IVPB SCH (16:00)
[2017-10-01] MEDS: *HR* OxyCODONE/APAP 5/325 TABLET PO PRN ×2 (17:38→21:57)
[2017-10-01] MEDS ORDERED: *HR* LORazepam 2 MG/ML VIAL IVP ONE (18:18)
[2017-10-01] MEDS ORDERED: *HR* LORazepam 0.5 MG TABLET PO ONE (18:19)
[2017-10-01] MEDS: Gabapentin 300 MG CAPSULE PO SCH (20:52)
[2017-10-02] MEDS: traMADol 50 MG TABLET PO PRN ×2 (00:09→09:44)
[2017-10-02] MEDS: Clindamycin 900 MG/50 ML 900 MG/50 ML IV.SOLN IVPB SCH (00:10)
[2017-10-02] MEDS: *HR* OxyCODONE Immed Rel 5 MG TABLET PO PRN ×2 (03:39→07:49)
[2017-10-02 05:47] LABS: Hematocrit 31.4 % (35.3-44.9); Hemoglobin 10.7 g/dL (11.5-15.4)
[2017-10-02] MEDS: *HR* Enoxaparin 30 MG/0.3 ML SYRINGE SQ SCH ×2 (06:05→16:23)
[2017-10-02] MEDS: Lisinopril 20 MG TABLET PO SCH (07:49)
[2017-10-02] MEDS: hydrOXYzine pamoate 25 MG CAPSULE PO SCH (07:49)
[2017-10-02] MEDS: amLODIPine 5 MG TABLET PO SCH (07:50)
--- NOTE | 2017-10-02 07:52 | Orthopedics Progress Note ---
Date of Encounter: 10/02/17 Time of Encounter: 07:52 - Assessment and Plan (1) Left rotator cuff tear arthropathy Current Visit: Yes Status: Chronic (2) Status post reverse total replacement of left shoulder Current Visit: Yes Status: Acute (3) Obesity (BMI 30.0-34.9) Current Visit: Yes Status: Chronic (4) Hypertension Current Visit: No Status: Chronic Qualifiers: Hypertension type: unspecified Qualified Code(s): I10 - Essential (primary ) hypertension (5) Hyperlipidemia Current Visit: No Status: Chronic Qualifiers: Hyperlipidemia type: unspecified Qualified Code(s): E78.5 - Hyperlipidemia , unspecified (6) Cerebrovascular disease Current Visit: No Status: Chronic (7) Cervical stenosis of spine Current Visit: No Status: Chronic (8) Carotid artery stenosis Current Visit: No Status: Chronic Qualifiers: Laterality: unspecified laterality Qualified Code(s): I65.29 - Occlusion and stenosis of unspecified carotid artery Subjective Interval history: Patient was seen this morning doing well without complaints. Afebrile vital signs stable. Operative extremity: Neurovascularly intact Dressing clean dry and intact Calves nontender Assessment and plan: Continue with postoperative care Hematocrit 31 Objective Vital signs: Vital Signs Temp Pulse Resp BP Pulse Ox 10/02/17 07:18 99.6 F 63 16 115/71 93 10/02/17 05:14 99.3 F 58 16 92/66 93 10/01/17 23:37 97.9 F 69 17 112/57 93 10/01/17 18:40 99.1 F 69 18 120/76 93 10/01/17 15:59 98.9 F 65 16 106/63 94 10/01/17 13:08 98.5 F 70 16 109/64 94 10/01/17 12:27 98.5 F 66 15 104/61 93 10/01/17 11:24 98.4 F 64 16 144/74 94 10/01/17 10:59 97.8 F 64 16 145/75 94 10/01/17 10:19 98.5 F 77 16 144/77 95 10/01/17 10:01 98.7 F 63 14 143/74 94 10/01/17 09:51 65 14 135/69 96 10/01/17 09:41 63 14 140/68 94 10/01/17 09:31 97.9 F 71 15 146/74 100 10/01/17 08:01 18 167/74 98 Intake and Output 10/01/17 10/01/17 10/02/17 15:59 23:59 07:59 Intake Total 1290 / 1290 270 / 270 Output Total 50 / 50 Balance 1240 / 1240 270 / 270 Intake: IV Fluids 1050 / 1050 50 / 50 Plasma-Lyte A (PH 7.4) 1,000 ML 1000 / 1000 @ 25 mls/hr IVC .Q24H [facility]O Rx#: [id number] Cleocin Premix 900 MG/50 ML 900 50 / 50 50 / 50 mg In 50 ml @ 50 mls/hr IVPB Q8HR LEO Rx#:[id number] Oral 240 / 240 220 / 220 Output: Estimated Blood Loss 50 / 50 Other: Meal Lunch Dinner Percent of Meal Consumed 100% 95% # Voids 1 1 1 - Labs CBC & BMP: 10/02/17 04:52 Labs: Abnormal lab results Hgb 10.7 g/dL (11.5-15.4) L D 10/02/17 04:52 Hct 31.4 % (35.3-44.9) L 10/02/17 04:52 - VTE Documentation of Mechanical Device: Venous foot pump, device Consult Discharge Plan - Plan Referrals: Brittney Crenshaw, PATTERNMAKER METAL BENCH [Primary Care Provider] -
[2017-10-02] MEDS: *HR* OxyCODONE/APAP 5/325 TABLET PO PRN ×3 (11:37→22:49)
[2017-10-02] MEDS ORDERED: *HR* Enoxaparin 30 MG/0.3 ML SYRINGE SQ SCH (18:43)
[2017-10-02] MEDS: Gabapentin 300 MG CAPSULE PO SCH (20:11)
[2017-10-03 03:34] LABS: Hematocrit 29.6 % (35.3-44.9); Hemoglobin 9.9 g/dL (11.5-15.4)
[2017-10-03] MEDS: *HR* Enoxaparin 30 MG/0.3 ML SYRINGE SQ SCH ×2 (05:42→16:39)
[2017-10-03] MEDS: *HR* OxyCODONE/APAP 5/325 TABLET PO PRN ×3 (05:54→17:21)
--- NOTE | 2017-10-03 06:42 | Orthopedics Progress Note ---
Date of Encounter: 10/03/17 Time of Encounter: 06:41 - Assessment and Plan (1) Left rotator cuff tear arthropathy Current Visit: Yes Status: Chronic (2) Status post reverse total replacement of left shoulder Current Visit: Yes Status: Acute (3) Obesity (BMI 30.0-34.9) Current Visit: Yes Status: Chronic (4) Hypertension Current Visit: No Status: Chronic Qualifiers: Hypertension type: unspecified Qualified Code(s): I10 - Essential (primary ) hypertension (5) Hyperlipidemia Current Visit: No Status: Chronic Qualifiers: Hyperlipidemia type: unspecified Qualified Code(s): E78.5 - Hyperlipidemia , unspecified (6) Cerebrovascular disease Current Visit: No Status: Chronic (7) Cervical stenosis of spine Current Visit: No Status: Chronic (8) Carotid artery stenosis Current Visit: No Status: Chronic Qualifiers: Laterality: unspecified laterality Qualified Code(s): I65.29 - Occlusion and stenosis of unspecified carotid artery (9) Acute blood loss anemia Current Visit: Yes Status: Acute Subjective Interval history: Patient was seen this morning doing well without complaints. Afebrile vital signs stable. Operative extremity: Neurovascularly intact Dressing clean dry and intact Calves nontender Assessment and plan: Continue with postoperative care Hematocrit 29 discharged tomorrow Objective Vital signs: Vital Signs Temp Pulse Resp BP Pulse Ox 10/03/17 03:38 99.3 F 65 16 94/62 91 10/02/17 23:18 93 10/02/17 22:39 100.8 F H 10/02/17 22:31 100.3 F H 73 18 97/53 93 10/02/17 19:53 96 10/02/17 18:48 99.6 F 69 18 101/49 96 10/02/17 15:52 98.9 F 57 18 88/55 93 10/02/17 11:22 98.3 F 64 16 95/58 94 10/02/17 07:18 99.6 F 63 16 115/71 93 Intake and Output 10/02/17 10/02/17 10/03/17 15:59 23:59 07:59 Intake Total 600 / 600 200 / 200 Output Total 350 / 350 400 / 400 Balance 250 / 250 -200 / -200 Intake: Oral 600 / 600 200 / 200 Output: Urine 350 / 350 400 / 400 Other: Meal Dinner Percent of Meal Consumed 100% # Voids 1 # Urine Diapers 1 1 Weight 135.8 kg Patient Weight 10/03/17 23:59 Weight 135.8 kg - Labs CBC & BMP: 10/03/17 03:07 Labs: Abnormal lab results Hgb 9.9 g/dL (11.5-15.4) L 10/03/17 03:07 Hct 29.6 % (35.3-44.9) L 10/03/17 03:07 - VTE Documentation of Mechanical Device: Venous foot pump, device Consult Discharge Plan - Plan Referrals: Brittney Crenshaw, COMPUTER GAME PROGRAMMER [Primary Care Provider] -
--- NOTE | 2017-10-03 07:40 | Physician Discharge Referral ---
ExtendedCare Referral Info Transfer To: [facility] Provider in Charge: Dr Ruth - Diagnosis (1) Hypertension Priority: Secondary Status: Chronic (2) Hyperlipidemia Priority: Secondary Status: Chronic (3) Obesity Priority: Secondary Status: Chronic (4) Arthritis of left glenohumeral joint Priority: Primary Status: Chronic (5) Status post total replacement of left shoulder Priority: Primary Status: Acute Expected Duration of Placement: less than 30 days Prognosis: Good Aware of Diagnosis: Patient Aware of Prognosis: Patient - Transfer Medications Home Medications: Atorvastatin Calcium [Lipitor] 20 mg PO HS 01/21/16 [History] Zolpidem [Ambien] 10 mg PO HS 01/21/16 [History] amLODIPine [Norvasc] 5 mg PO DAILY 01/21/16 [History] Gabapentin [Neurontin] 600 mg PO HS 10/15/16 [History] Sertraline [Zoloft] 100 mg PO DAILY 10/15/16 [History] Benazepril HCl [Lotensin] 20 mg PO DAILY 10/01/17 [History] Indapamide [Lozol] 2.5 mg PO DAILY 10/01/17 [History] OxyCODONE Immed Rel [Roxicodone 5 MG] 5 mg PO Q6HR PRN 7 Days #28 tablet [Rx] Potassium Chloride [Klor-Con 10] 10 meq PO DAILY 10/01/17 [History] hydrOXYzine pamoate [HydrOXYzine Pamoate] 25 mg PO DAILY 10/01/17 [History] Allergies/Adverse Reactions: 3 Allergy/AdvReac Type Severity Reaction Status Date / Time hydrocodone [From Vicodin] Allergy angry, ams Verified 10/01/17 06:41 Penicillins Allergy unknown-childhood Verified 10/01/17 06:41 allergy - Respiratory Orders Smoking Cessation: Smoking cessation has been advised. For more information, call the [place] Tobacco Quit Line at 4-367-ZQKD-NOW. - Ancillary Orders May use pressure relief devices daily prn, May go on RIANA w/family/respon republican w /meds at nurse discretion PRN, May consult with Dentist, Seasonal Recruiter, Evaporator Operator Molasses PRN - Mobility Orders Chair, Ambulate - Rehabiliation Orders Rehab Potential: Good Rehab Orders: Evaluation for Physical Therapy, Evaluation for Occupational Therapy Other: PT/OT. NWB to affected upper extremity. Follow Shoulder Precautions x 6 weeks. Stay in brace during activity and at night. Remove brace during exercises. ICE and elevate extremity frequently throughout the day. - Treatments Skin tear care topically daily PRN per policy List/Other: Opsite placed. Keep dressing intact until first follow up appointment. If greater than 50% saturated, notify office, remove dressing and place appropriate dressing back in place. Leave Zipline intact. Opsite dressing is water resistant, not water-proof. OK to shower, but do not get dressing wet. - Diet Orders Regular CERTIFICATION: I certify that the transfer of the above named patient to an Extended Care Facility is necessary for the continuing treatment of the diagnosis listed. The above information is true and accurate reflection of patient's current condition. Confidential - Redisclosure prohibited without a patient's written consent.
[2017-10-03] MEDS: hydrOXYzine pamoate 25 MG CAPSULE PO SCH (08:04)
[2017-10-03] MEDS: amLODIPine 5 MG TABLET PO SCH (08:05)
[2017-10-03] MEDS: Lisinopril 20 MG TABLET PO SCH (08:05)
[2017-10-03] MEDS: Gabapentin 300 MG CAPSULE PO SCH (20:55)
[2017-10-03] MEDS: *HR* OxyCODONE Immed Rel 5 MG TABLET PO PRN (21:00)
[2017-10-04] MEDS: *HR* OxyCODONE/APAP 5/325 TABLET PO PRN (04:20)
[2017-10-04] MEDS: *HR* Enoxaparin 30 MG/0.3 ML SYRINGE SQ SCH (05:35)
--- NOTE | 2017-10-04 05:37 | Orthopedics Progress Note ---
Date of Encounter: 10/04/17 Time of Encounter: 05:36 - Assessment and Plan (1) Left rotator cuff tear arthropathy Current Visit: Yes Status: Chronic (2) Obesity (BMI 30.0-34.9) Current Visit: Yes Status: Chronic (3) Hypertension Current Visit: No Status: Chronic Qualifiers: Hypertension type: unspecified Qualified Code(s): I10 - Essential (primary ) hypertension (4) Hyperlipidemia Current Visit: No Status: Chronic Qualifiers: Hyperlipidemia type: unspecified Qualified Code(s): E78.5 - Hyperlipidemia , unspecified (5) Cerebrovascular disease Current Visit: No Status: Chronic (6) Cervical stenosis of spine Current Visit: No Status: Chronic (7) Carotid artery stenosis Current Visit: No Status: Chronic Qualifiers: Laterality: unspecified laterality Qualified Code(s): I65.29 - Occlusion and stenosis of unspecified carotid artery (8) Acute blood loss anemia Current Visit: Yes Status: Acute (9) Status post total replacement of left shoulder Current Visit: Yes Status: Acute Subjective Interval history: Patient was seen this morning doing well without complaints. Afebrile vital signs stable. Operative extremity: Neurovascularly intact Dressing clean dry and intact Calves nontender Assessment and plan: Continue with postoperative care Discharged today Objective Vital signs: Vital Signs Temp Pulse Resp BP Pulse Ox 10/04/17 04:12 98.3 F 65 17 145/70 96 10/03/17 23:40 98.5 F 70 16 110/62 93 10/03/17 19:18 93 10/03/17 18:40 98.9 F 64 14 92/51 93 10/03/17 06:54 99.8 F H 65 16 92/60 96 Intake and Output 10/03/17 10/03/17 10/04/17 15:59 23:59 07:59 Intake Total 0 / 0 800 / 800 400 / 400 Balance 0 / 0 800 / 800 400 / 400 Intake: Oral 0 / 0 800 / 800 400 / 400 Other: Meal Breakfast Percent of Meal Consumed 90% # Voids 2 1 # Urine Diapers 1 - Labs CBC & BMP: 10/03/17 03:07 Labs: Abnormal lab results Hgb 9.9 g/dL (11.5-15.4) L 10/03/17 03:07 Hct 29.6 % (35.3-44.9) L 10/03/17 03:07 - VTE Documentation of Mechanical Device: Venous foot pump, device Consult Discharge Plan - Plan Referrals: Brittney Crenshaw, OFFICE MANAGER RECEPTIONIST [Primary Care Provider] -
[2017-10-04 07:27] VITALS: BP 117/62
[2017-10-04] MEDS: Lisinopril 20 MG TABLET PO SCH (07:50)
[2017-10-04] MEDS: amLODIPine 5 MG TABLET PO SCH (07:50)
[2017-10-04] MEDS: hydrOXYzine pamoate 25 MG CAPSULE PO SCH (07:55)
[2017-10-04] MEDS: *HR* OxyCODONE Immed Rel 5 MG TABLET PO PRN ×2 (08:07→12:54)
== END 2017-10-04 13:18 | DRG 483 ==
LOC: SAMDAY 06:09 → 3NENU 10:07
PROVIDERS: ADMIT Orthopaedic Surgery; ATTEND Orthopaedic Surgery

== ENCOUNTER 2020-02-07 11:45 | Inpatient (IN) ==
[~2020-02-07 11:45] MED LIST changes: -*HR* Enoxaparin 30 MG/0.3 ML SYRINGE SQ SCH; +*HR* OxyCODONE Immed Rel 5 MG TABLET PO PRN; +Acetaminophen IV 1,000 MG/100 ML INFUS..BTL IVPB ONE; +Ondansetron 4 MG/2 ML VIAL IVP ONE
[2020-02-07] MEDS ORDERED: Clindamycin 900 MG/50 ML 900 MG/50 ML IV.SOLN IVPB ONE (12:02)
[2020-02-07] MEDS ORDERED: *HR* Succinylcholine 200 MG/10 ML VIAL IVP ONE (12:14)
[2020-02-07] MEDS ORDERED: Ondansetron 4 MG/2 ML VIAL ONE (12:14)
[2020-02-07] MEDS ORDERED: Dexamethasone 4 MG/ML VIAL ONE (12:14)
[2020-02-07] MEDS ORDERED: *HR* Propofol 200 MG/20 ML VIAL IVP ONE (12:14)
[2020-02-07] MEDS ORDERED: Lidocaine HCL 4 ML Topical Solution (Laryng-O-Jet Kit Sterile Pak) TP ONE (12:14)
[2020-02-07] MEDS ORDERED: Lidocaine -MPF 2% 2 ML VIAL ONE (12:14)
[2020-02-07] MEDS ORDERED: Ringers Solution, Lactated 1,000 ML IVC SCH (12:15)
[2020-02-07] MEDS ORDERED: *HR* FentaNYL (PF) 100 MCG/2 ML VIAL ONE ×4 (12:50→14:15)
[2020-02-07] MEDS ORDERED: *HR* Midazolam HCl 2 MG/2 ML VIAL ONE (12:50)
[2020-02-07] MEDS ORDERED: Ropivacaine/PF 0.5% 30 ML VIAL ONE (12:51)
[2020-02-07] MEDS ORDERED: ROPIVACAINE/PF/NS 0.25% 1 EACH SYRINGE INTRAART ONE (12:51)
[2020-02-07] MEDS ORDERED: Vancomycin 1,000 MG VIAL ONE (13:09)
[2020-02-07] MEDS ORDERED: Ethanol\\Acetic Acid\\Na Ace\\Ben 1,000 ML IRRIG.SOLN IR ONE (13:09)
[2020-02-07] MEDS ORDERED: *HR* PHENYLEPHRINE 1,000 MCG/10 ML SYRINGE IVP ONE (13:55)
[2020-02-07 15:19] LABS: Hematocrit 36.1 % (35.3-44.9); Hemoglobin 11.9 g/dL (11.5-15.4)
[2020-02-07] MEDS ORDERED: D5% in Water 1,000 ML IVC PRN (15:42)
[2020-02-07] MEDS ORDERED: *HR* OxyCODONE Immed Rel 5 MG TABLET PO PRN (15:42)
[2020-02-07] MEDS ORDERED: *HR* Dextrose 50 % in Water (Vial) 50 ML VIAL IVP PRN (15:42)
[2020-02-07] MEDS ORDERED: MOM Conc 10 ML UD.LIQ PO PRN (15:42)
[2020-02-07] MEDS ORDERED: Dextrose Gel 15 GM/37.5 ML TUBE PO PRN ×2 (15:42)
[2020-02-07] MEDS ORDERED: Ondansetron 4 MG/2 ML VIAL IVP PRN (15:42)
[2020-02-07] MEDS ORDERED: Sennosides 8.6 MG TABLET PO PRN (15:42)
[2020-02-07] MEDS: *HR* Enoxaparin 30 MG/0.3 ML SYRINGE SQ SCH (17:21)
[2020-02-07] MEDS: Insulin LISPRO 300 UNITS/3 ML VIAL SQ SCH ×2 (17:24→20:16)
[2020-02-07] MEDS ORDERED: *HR* Enoxaparin 30 MG/0.3 ML SYRINGE SQ SCH (18:00)
[2020-02-07] MEDS: *HR* LORazepam 0.5 MG TABLET PO PRN (18:27)
[2020-02-07] MEDS: Ringers Solution, Lactated 1,000 ML IVC SCH (20:06)
[2020-02-07] MEDS: Clindamycin 900 MG/50 ML 900 MG/50 ML IV.SOLN IVPB SCH (20:06)
[2020-02-08] MEDS: *HR* OxyCODONE/APAP 5/325 TABLET PO PRN ×2 (02:06→06:32)
[2020-02-08] MEDS: Clindamycin 900 MG/50 ML 900 MG/50 ML IV.SOLN IVPB SCH (04:09)
[2020-02-08 05:17] LABS: Hematocrit 32.5 % (35.3-44.9); Hemoglobin 10.8 g/dL (11.5-15.4)
[2020-02-08 05:29] LABS: BUN/Creatinine Ratio 22 (6-26); Blood Urea Nitrogen 17 mg/dL (8-23); Calcium 8.8 mg/dL (8.6-10.3); Carbon Dioxide 23 mEq/L (23-29); Chloride 102 mEq/L (98-107); Glucose 186 mg/dL (70-105); Osmolality,Calculated 288 (280-300); Potassium 3.4 mEq/L (3.5-5.1); Sodium 136 mEq/L (136-145); eGFR For African Americans > 60 (> 60); eGFR For Non-African Americans > 60 (> 60)
[2020-02-08] MEDS: *HR* Enoxaparin 30 MG/0.3 ML SYRINGE SQ SCH ×2 (05:42→18:25)
[2020-02-08] MEDS: *HR* LORazepam 0.5 MG TABLET PO PRN (07:51)
[2020-02-08] MEDS: Ringers Solution, Lactated 1,000 ML IVC SCH (07:57)
[2020-02-08] MEDS: Insulin LISPRO 300 UNITS/3 ML VIAL SQ SCH ×4 (08:20→20:31)
[2020-02-08] MEDS: Loratadine 10 MG TABLET PO SCH (08:21)
[2020-02-08] MEDS: Gabapentin 300 MG CAPSULE PO SCH (08:21)
[2020-02-08] MEDS: lisinopriL 20 MG TABLET PO SCH (08:21)
[2020-02-08] MEDS: amLODIPine 5 MG TABLET PO SCH (08:22)
[2020-02-08] MEDS: hydrOXYzine pamoate 25 MG CAPSULE PO SCH (08:22)
[2020-02-08] MEDS ORDERED: 0.9 % Sodium Chloride 1,000 ML ONE (10:31)
[2020-02-08] MEDS: Fluticasone Propionate Nasal 50 MCG/SPRAY BOTTLE NS SCH (11:35)
[2020-02-08 14:35] LABS: Hematocrit 27.5 % (35.3-44.9); Hemoglobin 9.5 g/dL (11.5-15.4)
[2020-02-08] MEDS ORDERED: 0.9 % Sodium Chloride 500 ML IVC ONE (16:09)
[2020-02-08] MEDS: Acetaminophen IV 1,000 MG/100 ML INFUS..BTL IVPB SCH ×2 (18:24→23:06)
[2020-02-09] MEDS: Ringers Solution, Lactated 1,000 ML IVC SCH (00:27)
[2020-02-09] MEDS ORDERED: Ketorolac 30 MG/ML VIAL IVP PRN (04:05)
[2020-02-09] MEDS: Acetaminophen IV 1,000 MG/100 ML INFUS..BTL IVPB SCH (06:11)
[2020-02-09 06:35] LABS: Hematocrit 28.6 % (35.3-44.9); Hemoglobin 9.4 g/dL (11.5-15.4)
[2020-02-09 06:47] LABS: Calcium 8.5 mg/dL (8.6-10.3); Potassium 3.6 mEq/L (3.5-5.1)
[2020-02-09] MEDS: *HR* Enoxaparin 30 MG/0.3 ML SYRINGE SQ SCH (07:02)
[2020-02-09] MEDS: Fluticasone Propionate Nasal 50 MCG/SPRAY BOTTLE NS SCH (08:05)
[2020-02-09] MEDS: Loratadine 10 MG TABLET PO SCH (08:05)
[2020-02-09] MEDS: Gabapentin 300 MG CAPSULE PO SCH (08:06)
[2020-02-09] MEDS: lisinopriL 20 MG TABLET PO SCH (08:06)
[2020-02-09] MEDS: hydrOXYzine pamoate 25 MG CAPSULE PO SCH (08:06)
[2020-02-09] MEDS: amLODIPine 5 MG TABLET PO SCH (08:06)
[2020-02-09] MEDS: Insulin LISPRO 300 UNITS/3 ML VIAL SQ SCH ×4 (08:09→20:41)
[2020-02-09] MEDS: *HR* OxyCODONE Immed Rel 5 MG TABLET PO PRN ×2 (12:47→16:51)
[2020-02-09] MEDS ORDERED: 0.9 % Sodium Chloride 1,000 ML IV ONE (12:51)
[2020-02-09] MEDS ORDERED: 0.9 % Sodium Chloride 1,000 ML IVC SCH (13:00)
[2020-02-09] MEDS: *HR* LORazepam 0.5 MG TABLET PO PRN (15:32)
[2020-02-09] MEDS: Acetaminophen 325 MG TABLET PO SCH ×2 (16:51→23:15)
[2020-02-09 19:35] LABS: BUN/Creatinine Ratio 28 (6-26); Blood Urea Nitrogen 28 mg/dL (8-23); Calcium 8.9 mg/dL (8.6-10.3); Carbon Dioxide 25 mEq/L (23-29); Chloride 104 mEq/L (98-107); Glucose 134 mg/dL (70-105); Osmolality,Calculated 289 (280-300); Potassium 3.6 mEq/L (3.5-5.1); Sodium 136 mEq/L (136-145); eGFR For African Americans > 60 (> 60); eGFR For Non-African Americans 53 (> 60)
[2020-02-10] MEDS: Acetaminophen 325 MG TABLET PO SCH (05:23)
[2020-02-10 06:42] VITALS: BP 134/69
[2020-02-10 06:49] LABS: Basophils % 0.4 %
[2020-02-10 06:51] LABS: Eosinophils # 0.1 K/mcL (0.0-0.6); Eosinophils % 1.1 %; Hematocrit 29.6 % (35.3-44.9); Hemoglobin 9.6 g/dL (11.5-15.4); Immature Granulocytes % 0.2 % (0-4); Immature Platelets 8.9 % (1.1-6.1); Lymphocytes # 1.1 K/mcL (0.6-4.6); Lymphocytes % 20.5 %; Mean Corpuscular HGB Conc 32.4 g/dL (31.6-35.5); Mean Corpuscular Hemoglobin 31.1 pg (28.0-33.3); Mean Corpuscular Volume 95.8 fL (83.0-100.0); Mean Platelet Volume 11.6 fL (9.4-12.4); Monocytes # 0.7 K/mcL (0.0-1.3); Monocytes % 12.4 %; Neutrophils # 3.5 K/mcL (1.6-8.9); Red Blood Count 3.09 M/mcL (3.82-4.97); Red Cell Distribution Width 12.6 % (11.5-14.5); Segmented Neutrophils % 65.4 %; White Blood Count 5.3 K/mcL (4.3-11.1)
[2020-02-10 07:15] LABS: BUN/Creatinine Ratio 32 (6-26); Blood Urea Nitrogen 22 mg/dL (8-23); Calcium 8.8 mg/dL (8.6-10.3); Carbon Dioxide 23 mEq/L (23-29); Chloride 105 mEq/L (98-107); Glucose 102 mg/dL (70-105); Osmolality,Calculated 286 (280-300); Potassium 3.4 mEq/L (3.5-5.1); Sodium 136 mEq/L (136-145); eGFR For African Americans > 60 (> 60); eGFR For Non-African Americans > 60 (> 60)
[2020-02-10 07:18] LABS: Platelet Count 93 K/mcL (140-400)
[2020-02-10] MEDS: hydrOXYzine pamoate 25 MG CAPSULE PO SCH (08:02)
[2020-02-10] MEDS: Loratadine 10 MG TABLET PO SCH (08:02)
[2020-02-10] MEDS: Insulin LISPRO 300 UNITS/3 ML VIAL SQ SCH (08:03)
== END 2020-02-10 10:25 | disposition home or self-care (01) | DRG 483 ==
LOC: SAMDAY 11:45 → 3NENU 11:50
PROVIDERS: ADMIT Orthopaedic Surgery; ATTEND Orthopaedic Surgery